=== PATIENT | male | born 1995 | race Two or more races ===

== ENCOUNTER 2016-09-25 15:33 | Emergency (ER) | payer MEDICAID ==
[~2016-09-25] VITALS: Ht 185.4 cm; Wt 86.2 kg
[2016-09-25] MEDS ORDERED: KETOROLAC TROMETHAMINE 15 MG/ML VIAL ONE (16:38)
[2016-09-25 16:44] VITALS: BP 127/77
[2016-09-25] MEDS ORDERED: KETOROLAC TROMETHAMINE INJ 30 MG/ML VIAL IM ONE (17:00)
== END 2016-09-25 16:53 | disposition home or self-care (01) ==
LOC: ER 15:35
DX: S39.011A Strain of muscle, fascia and tendon of abdomen, initial encounter (principal); X58.XXXA Exposure to other specified factors, initial encounter; Y93.89 Activity, other specified; Y92.89 Other specified places as the place of occurrence of the external cause; Y99.9 Unspecified external cause status
CPT/HCPCS: A4606; J1885; Z7610